=== PATIENT | male | born 1965 | race Caucasian/White ===

== ENCOUNTER 2020-10-31 16:44 | Outpatient (REF) | payer OTHER, SELFPAY ==
--- NOTE | ~2020-10-31 | XR_ITS ---
EXAMINATION: XR FOREARM, RIGHT CLINICAL INFORMATION: Tendinitis COMPARISON: None TECHNIQUE: AP and lateral views of the right forearm were obtained. FINDINGS: Bony mineralization is normal. There is no acute or healing fracture, dislocation, or destructive process. Elbow joint shows no joint narrowing or erosive change. No elbow capsular effusion. No epicondylar or olecranon spurring. The ulnar variance is near neutral. The carpus shows no focal joint narrowing or erosive change or chondrocalcinosis. The pronator quadratus fat pad is unremarkable. XR/XR forearm RT 2V IMPRESSION: Normal right forearm.
== END 2020-10-31 16:45 | disposition home or self-care (01) ==
LOC: HO.XRAY 16:44
PROVIDERS: PCP Internal Medicine; Visit Provider Internal Medicine
DX: M67.839 Other specified disorders of synovium and tendon, unspecified wrist (principal)
CPT/HCPCS: 73090

== ENCOUNTER 2021-11-04 13:00 | Emergency (ER) | payer OTHER, SELFPAY ==
--- NOTE | ~2021-11-04 | XR_ITS ---
EXAMINATION: XR WRIST-LEFT CLINICAL INFORMATION: Status post fall. COMPARISON: Right forearm done on 10/31/2020. TECHNIQUE: 3 views of the left wrist and magnification view of the left scaphoid. FINDINGS: The bony alignments are intact. The cortices are intact. Mild diffuse osteopenia is noted. Soft tissues are unremarkable. XR/XR hand wrist LT IMPRESSION: 1. Mild diffuse osteopenia. 2. No radiographic evidence of any displaced fracture, subluxation or dislocation.
[2021-11-04 13:50] VITALS: BP 140/93; PULSE 85; RESP 18; TEMP 36.8; O2SAT 96; BMI 22.1
--- NOTE | 2021-11-04 16:52 | ED.EXTPRO ---
HPI - Extremity Problem General Chief complaint: Extremity Injury, Upper Stated complaint: sent from work conn for Xray Time Seen by Provider: 11/04/21 15:39 History of Present Illness HPI Narrative: Patient complains of left wrist plain after fall on outstretched hand on the job this morning, no other injury Related Data Previous Rx's Medication Instructions Recorded acetaminophen 500 mg tablet 1,000 mg PO QID PRN pain #30 tabs 11/04/21 ibuprofen 600 mg tablet 600 mg PO Q6H PRN pain #20 tabs 11/04/21 Allergies Allergy/AdvReac Type Severity Reaction Status Date / Time Sulfa (Sulfonamide Allergy Unknown ABD PAIN Verified 11/04/21 13:49 Antibiotics) [SULFA (SULFONAMIDE ANTIBIOTICS)] Review of Systems Review of Systems: Positive for left wrist pain after fall Negatives are no headache no head injury no loss of consciousness no neck pain no numbness weakness or tingling no lacerations no other extremity pains no chest pain no rib pain Yes all other systems are reviewed and are negative [facility] Past Medical History Source: nursing notes reviewed Social History Social History Advance Directives: No Advance Directives Information Provided: Yes Physical Exam Vital Signs: Vital Signs: Last Vital Signs Temp 98.2 F 11/04/21 13:50 Pulse 85 11/04/21 13:50 Resp 18 11/04/21 13:50 BP 140/93 H 11/04/21 13:50 Pulse Ox 96 11/04/21 13:50 O2 Del Method 11/04/21 13:50 BMI result Body Mass Index 22.1 General appearance no acute distress Head is normocephalic atraumatic Neck is supple nontender The back full range of motion Respiratory no distress Extremities the left wrist has very mild ulnar swelling with tenderness mostly on the ulnar aspect of the dorsal wrist, range of motion is limited, neurovascular intact distal with full normal tendon function on flexion and extension Other extremities normal Skin no lacerations Course Course Course Narrative: X-ray did not have any acute traumatic findings no broken bone Velcro splint was placed for wrist sprain and patient will follow with work connection Discharge Plan Discharge Clinical Impression: Sprain and strain of wrist Patient Disposition: Home, Self-Care Additional Instructions: X-ray did not show any broken bone Follow with work connection for further evaluation and possible referral to an orthopedist Return any time any worse condition or any concerns It is okay to apply ice Prescriptions: New acetaminophen 500 mg tablet 1,000 mg PO QID PRN (Reason: pain) Qty: 30 0RF ibuprofen 600 mg tablet 600 mg PO Q6H PRN (Reason: pain) Qty: 20 0RF Referrals: [facility] [Provider Group] (Left wrist sprain) Stand Alone Forms: Work/School Release
== END 2021-11-04 17:27 | disposition home or self-care (01) ==
PROVIDERS: Emergency Provider Emergency Medicine; PCP Internal Medicine
DX: S63.502A Unspecified sprain of left wrist, initial encounter (principal); S66.912A Strain of unspecified muscle, fascia and tendon at wrist and hand level, left hand, initial encounter; W01.0XXA Fall on same level from slipping, tripping and stumbling without subsequent striking against object, initial encounter; Y93.F9 Activity, other caregiving; Y92.129 Unspecified place in nursing home as the place of occurrence of the external cause; Y99.0 Civilian activity done for income or pay
CPT/HCPCS: 73110; 73130; 99282; 99283

== ENCOUNTER → 2021-11-06 10:13 | Outpatient (BNVA) | payer OTHER, SELFPAY | PROVIDERS: PCP Internal Medicine; Visit Provider Physician Assistant | DX: S63.502A Unspecified sprain of left wrist, initial encounter (principal); X58.XXXA Exposure to other specified factors, initial encounter | CPT/HCPCS: 99203 ==

== ENCOUNTER → 2021-11-14 10:05 | Outpatient (BNVA) | payer OTHER, SELFPAY | PROVIDERS: PCP Internal Medicine; Visit Provider Physician Assistant | DX: S60.212A Contusion of left wrist, initial encounter (principal); W18.30XA Fall on same level, unspecified, initial encounter | CPT/HCPCS: 99213 ==

== ENCOUNTER 2023-06-08 12:22 | Outpatient (REF) | payer OTHER, SELFPAY ==
[2023-06-08 12:48] LABS: MANUAL DIFF FLAG NO
[2023-06-08 13:35] LABS: Basophils Absolute Auto 0.1 X10*3/uL (0.0-0.2); Eosinophils Absolute Auto 0.2 X10*3/uL (0.0-0.4); Eosinophils Percent Auto 4.9 % (0-4); Hematocrit 48.3 % (42.0-52.0); Hemoglobin 15.9 g/dl (14.0-18.0); Imm Gran Abs Auto 0.02 X10*3/uL (0.00-0.03); Imm Gran Pct Auto 0.4 % (0.0-0.4); Lymphocytes Absolute Auto 1.5 X10*3/uL (1.2-4.9); Lymphocytes Percent Auto 31.4 % (20-40); Mean Corpuscular HGB Conc 32.9 g/dl (31.0-36.0); Mean Corpuscular Hemoglobin 29.2 pg (27.0-33.0); Mean Corpuscular Volume 88.8 fL (80.0-98.0); Monocytes Absolute Auto 0.4 X10*3/uL (0.1-1.2); Monocytes Percent Auto 8.2 % (2-11); Neutrophils Absolute Auto 2.7 x10*3/uL (2.0-8.3); Neutrophils Percent Auto 54.1 % (45-73); Platelet Count 243 X10*3/uL (160-400); Red Blood Count 5.44 X10*6/uL (4.60-5.80); Red Cell Distribution Width 13.5 % (11.0-16.0); White Blood Count 4.9 X10*3/uL (4.8-10.8)
[2023-06-08 14:29] LABS: Alanine Aminotransferase 15 U/L (0-40); Albumin Level 4.5 g/dL (3.5-5.0); Alkaline Phosphatase 60 U/L (39-117); Anion Gap 12 (12-20); Aspartate Amino Transferase 20 U/L (5-37); Bilirubin Total 0.5 mg/dL (0.0-1.0); Blood Urea Nitrogen 14 mg/dL (9-16); Calcium 9.8 mg/dL (8.4-10.2); Carbon Dioxide 30 mmol/L (22-29); Chloride 103 mmol/L (96-108); Cholesterol 253 mg/dL (<200); Estimated Glomerular Filt Rate > 60; Glucose Random 90 mg/dL (60-115); HDL Cholesterol 54 mg/dL (>40); LDL Cholesterol Calculated 175 mg/dL (<100); Potassium 4.5 mmol/L (3.3-5.1); Sodium 140 mmol/L (135-145); Total Protein 7.5 g/dL (6.5-8.0); Triglycerides 124 mg/dL (<150)
[2023-06-08 14:46] LABS: Vitamin D 25-OH Total 50.8 ng/mL (>30)
[2023-06-08 19:06] LABS: Prostate Specific Antigen 4.72 ng/mL (<0.05-4.0)
== END 2023-06-08 12:23 | disposition home or self-care (01) ==
LOC: HO.LAB 12:22
PROVIDERS: PCP Internal Medicine; Visit Provider Internal Medicine
DX: Z00.00 Encounter for general adult medical examination without abnormal findings (principal); Z12.5 Encounter for screening for malignant neoplasm of prostate; Z13.6 Encounter for screening for cardiovascular disorders; E55.9 Vitamin D deficiency, unspecified
CPT/HCPCS: 36415; 80053; 80061; 82306; 84153; 85025

== ENCOUNTER → 2023-11-20 13:52 | Outpatient (BNVA) | payer OTHER, SELFPAY | PROVIDERS: PCP Internal Medicine; Visit Provider Registered Nurse | DX: S39.011A Strain of muscle, fascia and tendon of abdomen, initial encounter (principal); X50.0XXA Overexertion from strenuous movement or load, initial encounter | CPT/HCPCS: 99203 ==

== ENCOUNTER → 2023-11-23 09:57 | Outpatient (BNVA) | payer OTHER, SELFPAY | PROVIDERS: PCP Internal Medicine; Visit Provider Physician Assistant Medical | DX: S39.011A Strain of muscle, fascia and tendon of abdomen, initial encounter (principal); X50.0XXA Overexertion from strenuous movement or load, initial encounter | CPT/HCPCS: 99213 ==